=== PATIENT | female | born 1970 | race Caucasian/White ===

== ENCOUNTER 2018-11-24 07:55 | Emergency (ER) | payer OTHER ==
[~2018-11-24] VITALS: Ht 172.7 cm; Wt 104.1 kg
[2018-11-24 07:58] VITALS: BP 119/61
[2018-11-24] MEDS ORDERED: METH4TAB2 PO (08:13)
[2018-11-24] MEDS ORDERED: DIPH25CA58 PO (08:13)
[2018-11-24] MEDS ORDERED: FAMO-63 PO (08:13)
[2018-11-24] MEDS ORDERED: CEPH-264 PO (08:13)
[2018-11-24] MEDS ORDERED: FAMOTIDINE 20 MG TABLET. PO ONE (08:15)
[2018-11-24] MEDS ORDERED: predniSONE 10 MG TABLET PO ONE (08:15)
[2018-11-24] MEDS ORDERED: diphenhydrAMINE HCL 25 MG CAPSULE PO ONE (08:15)
--- NOTE | 2018-11-24 08:20 | PHYS DOC ---
Past Medical History Past Medical History: Other Additional Past Medical Histor: leaky heart valve, PSORIASIS Past Surgical History: No Surgical History Alcohol Use: None Drug Use: Methamphetamine Adult General Chief Complaint Chief Complaint: EYE PROBLEMS HPI HPI Patient is a 48 year old female who presents with used a new Mud Mask on her face last night and began having some itching and slight swelling around her eyes and upper face. Patient states she awoke this morning to facial redness and swelling around her eyes extending to top of cheek bones. Patient denies pain or drainage. There is no drainage or blisters. Review of Systems Review of Systems Constitutional: Denies fever or chills [] Eyes: Denies change in visual acuity, redness, or eye pain [] HENT: Denies nasal congestion or sore throat [] Respiratory: Denies cough or shortness of breath [] Cardiovascular: No additional information not addressed in HPI [] GI: Denies abdominal pain, nausea, vomiting, bloody stools or diarrhea [] : Denies dysuria or hematuria [] Musculoskeletal: Denies back pain or joint pain [] Integument: facial rash or skin lesions [] Neurologic: Denies headache, focal weakness or sensory changes [] All other systems were reviewed and found to be within normal limits, except as documented in this note. Allergies Allergies Allergies Coded Allergies Type Severity Reaction Last Updated Verified No Known Drug Allergies 02/08/15 No Physical Exam Physical Exam Constitutional: Well developed, well nourished, no acute distress, non-toxic appearance. [] HENT: Normocephalic, atraumatic, bilateral external ears normal, oropharynx moist, no oral exudates, nose normal. [] Eyes: PERRLA, EOMI, conjunctiva normal, no discharge. [] Neck: Normal range of motion, no tenderness, supple, no stridor. [] Cardiovascular:Heart rate regular rhythm, no murmur [] Lungs & Thorax: Bilateral breath sounds clear to auscultation [] Abdomen: Bowel sounds normal, soft, no tenderness, no masses, no pulsatile masses. [] Skin: Warm, dry, no erythema, facial rash. [] Back: No tenderness, no CVA tenderness. [] Extremities: No tenderness, no cyanosis, no clubbing, ROM intact, no edema. [] Neurologic: Alert and oriented X 3, normal motor function, normal sensory function, no focal deficits noted. [] Psychologic: Affect normal, judgement normal, mood normal. [] EKG EKG [] Radiology/Procedures Radiology/Procedures [] Course & Med Decision Making Course & Med Decision Making Patient is a 48 year old female who presents with used a new Mud Mask on her face last night and began having some itching and slight swelling around her eyes and upper face. Patient states she awoke this morning to facial redness and swelling around her eyes extending to top of cheek bones. Patient denies pain or drainage. There is no drainage or blisters. Denies visual changes or eye pain. Patient has intact range of motion of her eye and has no pain with movement of her eyes. Denies fever, nausea, soa, or vomiting. Patient also states she had a abscess or a ingrown hair on her chin that his open and draining. It has been there for a week. The wound looks to be scabbed over. Differentials for this patient would be facial cellulitis or allergic reaction. I will treat her with Keflex to help with the wound on her chin and treat for a allergic reaction. Dragon Disclaimer Dragon Disclaimer This electronic medical record was generated, in whole or in part, using a voice recognition dictation system. Departure Departure Impression: Primary Impression: Contact dermatitis Additional Impression: Wound of skin Disposition: 01 HOME, SELF-CARE Condition: STABLE Referrals: ALMA CEVALLOS (PCP) Patient Instructions: Abscess, Contact Dermatitis Additional Instructions: Take medication as prescribed. If worsening return to ED or follow up with eye doctor. Scripts Cephalexin (KEFLEX) 500 Mg Capsule 500 MG PO QID for 7 Days, #28 CAP Prov: TESSA TERRY SUPERVISOR [employer] 11/24/18 Diphenhydramine Hcl (BENADRYL) 25 Mg Capsule 25 MG PO TID for 5 Days, #15 CAP Prov: BAFTESSA OSUNA SUPERVISOR [employer] 11/24/18 Famotidine (PEPCID) 20 Mg Tablet 20 MG PO BID for 5 Days, #10 TAB Prov: TESSA TERRY SUPERVISOR [employer] 11/24/18 Methylprednisolone (MEDROL) 4 Mg Tab.ds.pk 1 PKG PO UD, #1 PKG Prov: TESSA TERRY APRN 11/24/18 Problem Qualifiers Primary Impression: Contact dermatitis Contact dermatitis type: allergic Contact dermatitis trigger: other chemical product Qualified Codes: L23.5 - Allergic contact dermatitis due to other chemical products TESSA TERRY APRN Nov 24, 2018 08:20
== END 2018-11-24 08:20 | disposition home or self-care (01) ==
LOC: ER 07:55
DX: L23.5 Allergic contact dermatitis due to other chemical products (principal); L40.9 Psoriasis, unspecified
CPT/HCPCS: 99284; J7512; Q0163

== ENCOUNTER 2019-08-10 12:06 | Emergency (ER) | payer MEDICAID, OTHER ==
[~2019-08-10] VITALS: Ht 170.2 cm; Wt 103.9 kg
[2019-08-10 12:06] VITALS: BP 132/70
[~2019-08-10 12:06] MED LIST: CEPH-264 PO; DIPH25CA58 PO; FAMO-63 PO; METH4TAB2 PO
[2019-08-10] MEDS ORDERED: DEXAMETHASONE SOD PHOS 20 MG/5 ML VIAL. IM ONE (13:00)
[2019-08-10] MEDS ORDERED: hydrOXYzine IM 50 MG/ML VIAL IM ONE (13:00)
[2019-08-10] MEDS ORDERED: TRIA15OI TP (13:03)
[2019-08-10] MEDS ORDERED: HYDR50TA PO (13:03)
[2019-08-10] MEDS ORDERED: PRED-220 PO (13:03)
--- NOTE | 2019-08-10 13:03 | PHYS DOC ---
Past Medical History Past Medical History: Hypertension, Other Additional Past Medical Histor: leaky heart valve, PSORIASIS Past Surgical History: No Surgical History Alcohol Use: None Drug Use: None Adult General Chief Complaint Chief Complaint: ITCHING HPI HPI Patient is a 49 year old female with history of hypertension who presents to the ED today complaining of a scaly itchy rash for the last 2 months. Patient states she was seen by the PCP 2 months ago and was given a steroid cream which did not help. Patient denies any fever. Review of Systems Review of Systems Constitutional: Denies fever or chills [] Musculoskeletal: Denies back pain or joint pain [] Integument: Reports rash Neurologic: Denies headache, focal weakness or sensory changes [] All other systems were reviewed and found to be within normal limits, except as documented in this note. Allergies Allergies Allergies Coded Allergies Type Severity Reaction Last Updated Verified No Known Drug Allergies 02/08/15 No Physical Exam Physical Exam Constitutional: Well developed, well nourished, no acute distress, non-toxic appearance. [] Skin: Mild amount of scaly erythematous patchy type of rash in patient's bilateral upper extremities, lower extremities and back. Rash suspicious of psoriasis. Back: No tenderness, no CVA tenderness. [] Extremities: No tenderness, no cyanosis, no clubbing, ROM intact, no edema. [] Neurologic: Alert and oriented X 3, normal motor function, normal sensory function, no focal deficits noted. [] Psychologic: Affect normal, judgement normal, mood normal. [] Current Patient Data Vital Signs Vital Signs Date Time Temp Pulse Resp B/P (MAP) Pulse Ox O2 Delivery O2 Flow Rate FiO2 08/10/19 12:06 98.4 98 19 132/70 (90) 98 Room Air 98.4 EKG EKG [] Radiology/Procedures Radiology/Procedures [] Course & Med Decision Making Course & Med Decision Making Pertinent Labs and Imaging studies reviewed. (See chart for details) This is a 49-year-old female patient who presents to the ED today with a rash suspicious of psoriasis. She has been told before she has psoriasis and was asked to consider seeing a traffic signal supervisor maintenance which she did not. She states she is familiar with Dr. Banks the spinner fixer. I requested her to follow-up with Dr. Banks as soon as she can. In the meantime I put her on oral prednisone tapered dose, and hydroxyzine. Dragon Disclaimer Dragon Disclaimer This electronic medical record was generated, in whole or in part, using a voice recognition dictation system. Departure Departure Impression: Primary Impression: Psoriasiform dermatitis Disposition: HOME, SELF-CARE Condition: STABLE Referrals: TRINA KIRK (PCP) CA BANKS MD follow up as soon as you can Patient Instructions: Psoriasis, [id number] Additional Instructions: He were evaluated in the emergency room for a rash that is suspicious of psoriasis. We highly recommend you follow-up with the spinner fixer provided and request a referral to traffic signal supervisor maintenance for follow up as well. Scripts Triamcinolone Acetonide (TRIAMCINOLONE ACETONIDE 0.1% OINT) 15 Gm Oint...g. 1 BARRETT TP TID for WOUND CARE, #1 TUBE Prov: CIARRA PEREZ APRN 08/10/19 Prednisone (PREDNISONE ) 10 Mg Tablet 10 MG PO UD for PREDNISONE TAPER, #39 TAB 0 Refills Take 3 tablets by mouth twice a day for 3 days, then take 2 tablets by mouth twice a day for 3 days, then take 1 tablet by mouth twice a day for 3 days, then take 1 tablet by mouth daily x 3 days, then stop. Prov: CIARRA PEREZ APRN 08/10/19 Hydroxyzine Hcl (HYDROXYZINE HCL) 50 Mg Tablet 50 MG PO TID, #90 TAB Prov: CIARRA PEREZ APRN 08/10/19 CIARRA PEREZ APRN Aug 10, 2019 13:03
== END 2019-08-10 13:13 | disposition home or self-care (01) ==
LOC: ER 12:06
DX: L30.8 Other specified dermatitis (principal); I10 Essential (primary) hypertension
CPT/HCPCS: 96372; 99284; J1100; J3410

== ENCOUNTER 2020-05-24 11:20 | Emergency (ER) | payer MEDICAID ==
[~2020-05-24] VITALS: Ht 172.7 cm; Wt 97.6 kg
[~2020-05-24 11:20] MED LIST changes: +HYDR50TA PO; +PRED-220 PO; +TRIA15OI TP
[2020-05-24] MEDS ORDERED: PRED20TA PO (12:14)
[2020-05-24] MEDS ORDERED: predniSONE 10 MG TABLET PO ONE (12:15)
--- NOTE | 2020-05-24 12:15 | PHYS DOC ---
Past Medical History Past Medical History: Hypertension, Other Additional Past Medical Histor: leaky heart valve, PSORIASIS Past Surgical History: No Surgical History Smoking Status: Current Every Day Smoker Additional Information: 2 ppd Alcohol Use: None Drug Use: None General Adult EDM: Chief Complaint: ALLERGIC REACTION HPI: HPI: Patient is a 50 year old female who presents to the emergency department with complaints of redness, swelling, and itching to her face for the last 3 days. Patient reports that the symptoms began after she used a new charcoal facemask. She denies any drainage, fever, shortness of breath, wheezing, or pain. Patient states she has tried applying cool cloths to the face for comfort that helps temporarily but then the conditions return. She denies any vision changes, headache, or crusting of her eyelids. She reports that her eyes were tearing initially but denies any drainage from her eyes at this time. Review of Systems: Review of Systems: Constitutional: Denies fever or chills. [] Eyes: Denies change in visual acuity. [] HENT: Denies nasal congestion or sore throat. [] Respiratory: Denies cough or shortness of breath. [] Integument: Denies see HPI Neurologic: Denies headache, focal weakness or sensory changes. [] Lymphatic: Denies swollen glands. [] Psychiatric: Denies depression or anxiety. [] Heart Score: Risk Factors: Risk Factors: DM, Current or recent (<one month) smoker, HTN, HLP, family history of CAD, obesity. Risk Scores: Score 0 - 3: 2.5% MACE over next 6 weeks - Discharge Home Score 4 - 6: 20.3% MACE over next 6 weeks - Admit for Clinical Observation Score 7 - 10: 72.7% MACE over next 6 weeks - Early Invasive Strategies Current Medications: Current Medications Medications (Trade) Dose Ordered Sig/Jonny Start Time Stop Time Status Last Admin Dose Admin Prednisone (Prednisone) 50 mg 1X ONCE 05/24/20 12:15 05/24/20 12:16 UNV Allergies: Allergies: Allergies Coded Allergies Type Severity Reaction Last Updated Verified No Known Drug Allergies 05/24/20 No Physical Exam: PE: Constitutional: Well developed, well nourished, no acute distress, non-toxic appearance. [] HENT: Normocephalic, atraumatic, bilateral external ears normal, oropharynx mo ist, no oral exudates, nose normal. [] Eyes: PERRLA, EOMI, conjunctiva normal, no discharge. [] Neck: Normal range of motion, no stridor. [] Cardiovascular:Heart rate regular rhythm, no murmur [] Lungs & Thorax: Respirations even and unlabored, no retractions, no respiratory distress Skin: Warm, dry; erythema with mild edema noted to patient's face, consistent with contact dermatitis, no vesicles, no drainage Extremities: No cyanosis, ROM intact, no edema. [] Neurologic: Alert and oriented X 3, no focal deficits noted. [] Psychologic: Affect normal, judgement normal, mood normal. [] Current Patient Data: Vital Signs: Vital Signs Date Time Temp Pulse Resp B/P (MAP) Pulse Ox O2 Delivery O2 Flow Rate FiO2 05/24/20 11:35 98.8 81 16 103/51 (68) 98 Room Air 98.8 EKG: EKG: [] Radiology/Procedures: Radiology/Procedures: [] Course & Med Decision Making: Course & Med Decision Making Pertinent Labs and Imaging studies reviewed. (See chart for details) [] Dragon Disclaimer: Realitycheck Disclaimer: This electronic medical record was generated, in whole or in part, using a voice recognition dictation system. Departure Departure Impression: Primary Impression: Contact dermatitis Qualified Codes: L23.2 - Allergic contact dermatitis due to cosmetics Disposition: HOME, SELF-CARE Condition: STABLE Referrals: NO PCP (PCP) Patient Instructions: Contact Dermatitis, [id number] Additional Instructions: Fill the prescriptions and use them as directed. I recommend that you apply c ool moist cloth to your face as needed for comfort. Only use facial cleansers and moisturizers that are for sensitive skin. Follow-up with your primary care doctor if symptoms persist, return to the ER if symptoms worsen or fever develops. [facility] [address] [place] [address] [facility] [address] [place] [address] [place] [address] [facility] [address] [address] [facility] [address] [place] [address] [address] [address] [place] [address] [address] [place] [address] [facility] [address] [place] [address] [facility] [address] [place] [address] [facility] [address] [place] [address] Scripts Prednisone (PREDNISONE) 20 Mg Tablet 1 TAB PO UD for 12 Days, #15 TAB 2 tabs by mouth days 1,2,3 then 1.5 tabs by mouth days 4,5,6 then 1 tab by mouth days 7,8,9 then 0.5 tab by mouth day 10,11,12 Prov: DANIELE TAMAYO DIRECTOR CHILD ABUSE THERAPY 05/24/20 Justicifation of Admission Dx: Justifications for Admission: Justification of Admission Dx: N/A DANIELE TAMAYO DIRECTOR CHILD ABUSE THERAPY May 24, 2020 12:14
[2020-05-24 12:23] VITALS: BP 107/60
== END 2020-05-24 12:27 | disposition home or self-care (01) ==
LOC: ER 11:20
DX: T49.8X1A Poisoning by other topical agents, accidental (unintentional), initial encounter (principal); L23.2 Allergic contact dermatitis due to cosmetics; I10 Essential (primary) hypertension; F17.200 Nicotine dependence, unspecified, uncomplicated; Y92.89 Other specified places as the place of occurrence of the external cause
CPT/HCPCS: 99283; J7512

== ENCOUNTER 2021-02-11 23:07 | Emergency (ER) | payer MEDICAID ==
[~2021-02-11] VITALS: Ht 172.7 cm; Wt 100.0 kg
[~2021-02-11 23:07] MED LIST changes: +PRED20TA PO
[2021-02-12 00:27] VITALS: BP 109/55
[2021-02-12] MEDS ORDERED: AMOXICILLIN/K CLAV 875/125MG TABLET. PO ONE (01:15)
[2021-02-12] MEDS ORDERED: DIPH,PERTUSS(ACELL),TET VAC/PF 0.5 ML SYRINGE. VAX IM ONE (01:15)
--- NOTE | 2021-02-12 01:40 | ED.ADGEN ---
Past Medical History Past Medical History: Hypertension Additional Past Medical Histor: leaky heart valve, PSORIASIS Past Surgical History: No Surgical History Smoking Status: Current Every Day Smoker Alcohol Use: None Drug Use: None General Adult EDM: Chief Complaint: ANIMAL BITE HPI: HPI: Patient is a 50 year old female presenting with dog bite to the distal end of her right index finger. Patient states it was her dog bit her. States she has read patient out of date but states that she has not concerned about him having repeated as she wished acting normally but got into a small altercation with her daughter's dog when she was trying to break them up. Last tetanus greater than 5 years ago Review of Systems: Review of Systems: All other systems within normal limits except for as noted in the HPI Current Medications: Current Medications Medications (Trade) Dose Ordered Sig/Jonny Start Time Stop Time Status Last Admin Dose Admin Amoxicillin/ Clavulanate Potassium (Augmentin 875/ 125mg) 1 tab 1X ONCE 02/12/21 01:15 02/12/21 01:16 DC 02/12/21 01:52 1 TAB Diphtheria/ Tetanus/Acell Pertussis (ADACEL TDap SYRINGE) 0.5 ml ONCE ONCE 02/12/21 01:15 02/12/21 01:16 DC 02/12/21 01:53 0.5 ML Allergies: Allergies: Allergies Coded Allergies Type Severity Reaction Last Updated Verified No Known Drug Allergies 05/24/20 No Physical Exam: PE: Constitutional: Well developed, well nourished, no acute distress, non-toxic appearance. [] HENT: Normocephalic, atraumatic, bilateral external ears normal, nose normal. [] Eyes: PERRLA, conjunctiva normal, no discharge. [] Neck: No rigidity, supple, no stridor. [] Cardiovascular: Regular rate and rhythm, brisk cap refill [] Lungs & Thorax: Non labored symmetric respirations, no tachypnea or respiratory distress [] Abdomen: Soft, nondistended. Skin: Warm, dry, no erythema, no rash. +1 cm laceration to fat pad of right distal index finger. Small laceration on other side next to fingernail [] Back: Unremarkable Extremities: No deformities, range of motion grossly intact, no lower extremity edema [] Neurologic: Alert and oriented X 3, no focal deficits noted. [] Psychologic: Affect normal, judgement normal, mood normal. [] Current Patient Data: Vital Signs: Vital Signs Date Time Temp Pulse Resp B/P (MAP) Pulse Ox O2 Delivery O2 Flow Rate FiO2 02/12/21 00:27 98.1 67 20 97 Room Air 98.1 EKG: EKG: [] Heart Score: C/O Chest Pain: No Risk Factors: Risk Factors: DM, Current or recent (<one month) smoker, HTN, HLP, family history of CAD, obesity. Risk Scores: Score 0 - 3: 2.5% MACE over next 6 weeks - Discharge Home Score 4 - 6: 20.3% MACE over next 6 weeks - Admit for Clinical Observation Score 7 - 10: 72.7% MACE over next 6 weeks - Early Invasive Strategies Radiology/Procedures: Radiology/Procedures: EXAM: Right second finger 3 views. HISTORY: Pain after injury.. COMPARISON: None. FINDINGS: There is a laceration along the distal aspect of the second digit. There is no fracture or radiopaque foreign body. 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 Rings project over the first and fourth proximal phalanges. IMPRESSION: 1. Second digit laceration. No fracture or radiopaque foreign body. [] Course & Med Decision Making: Course & Med Decision Making Patient refusing rabies vaccine, states she has her dog will quarantine at. Discussed symptoms to watch out for and to immediately take the dog animal control of the grade and center marker. Treated with Augmentin. Tetanus updated Thanh Disclaimer: Thanh Disclaimer: This electronic medical record was generated, in whole or in part, using a voice recognition dictation system. Departure Departure Impression: Primary Impression: Dog bite of index finger Disposition: HOME / SELF CARE / HOMELESS Condition: STABLE Referrals: NO PCP (PCP) Patient Instructions: Wound Care, [id number] Additional Instructions: Monitoring quarantine your dog and observe for any abnormal behaviors. If noted call animal control immediately. Scripts Amoxicillin/Potassium Clav (AUGMENTIN 875-125 TABLET) 1 Each Tablet 1 TAB PO BID for antibiotic for 7 Days, #14 TAB 0 Refills Prov: SHELDON HAYWOOD MD 02/12/21 SHELDON HAYWOOD MD February 12, 2021 01:40
--- NOTE | 2021-02-12 01:44 | RAD ---
EXAM: Right second finger 3 views. HISTORY: Pain after injury.. COMPARISON: None. FINDINGS: There is a laceration along the distal aspect of the second digit. There is no fracture or radiopaque foreign body. 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 Rings project over the first an d fourth proximal phalanges. IMPRESSION: 1. Second digit laceration. No fracture or radiopaque foreign body. Electronically signed by: Paul Joseph MD (02/12/2021 1:41 AM) [facility]
[2021-02-12] MEDS ORDERED: AMOX1TAB61 PO (02:14)
== END 2021-02-12 02:30 | disposition home or self-care (01) ==
LOC: ER 23:07
DX: S61.210A Laceration without foreign body of right index finger without damage to nail, initial encounter (principal); I10 Essential (primary) hypertension; F17.200 Nicotine dependence, unspecified, uncomplicated; W54.0XXA Bitten by dog, initial encounter; Y93.89 Activity, other specified; Y92.89 Other specified places as the place of occurrence of the external cause; Y99.8 Other external cause status
CPT/HCPCS: 73140; 90471; 90715; 99283

== ENCOUNTER 2021-08-03 22:42 | Emergency (ER) | payer MEDICAID ==
[~2021-08-03] VITALS: Ht 170.2 cm; Wt 96.8 kg
[~2021-08-03 22:42] MED LIST changes: +AMOX1TAB61 PO
--- NOTE | 2021-08-03 23:39 | RAD ---
US DPLX VENOUS EXTREMITY LOWER LT 08/03/2021 11:07 PM Clinical Information: Reason: LLE swelling pain Comparison: None. Technique: Multiple grayscale, color Doppler, and spectral Doppler sonographic images of the lower ex tremity venous structures were obtained. Findings: The left common femoral, femoral, and popliteal veins exhibit normal compression, respiratory phasici ty, and augmentation. No intraluminal thrombi are identified. Color Doppler flow is demonstrated in t he left posterior tibial veins. Greater saphenous veins are patent at the saphenofemoral junction. Impression: 1. No evidence of deep venous thrombosis. Electronically signed by: Alana Holder MD (08/03/2021 11:37 PM) [facility]
[2021-08-03 23:50] VITALS: BP 93/60
--- NOTE | 2021-08-03 23:57 | PHYS DOC ---
Past Medical History Past Medical History: Hypertension Additional Past Medical Histor: leaky heart valve, PSORIASIS Past Surgical History: No Surgical History Smoking Status: Current Every Day Smoker Alcohol Use: None Drug Use: None General Adult EDM: Chief Complaint: LOWER EXT PAIN HPI: HPI: Patient is a 51 year old female with a history of hypertension who presents to the ED today complaining of left lower extremity swelling, redness, warmth, symptoms began a week ago. Patient denies any injuries. Denies any recent hospitalization or long car or air travel. Denies any fever. She states she is concerned she could have a DVT or infection. Review of Systems: Review of Systems: Constitutional: Denies fever or chills. [] Eyes: Denies change in visual acuity. [] HENT: Denies nasal congestion or sore throat. [] Respiratory: Denies cough or shortness of breath. [] Cardiovascular: Denies chest pain or edema. [] GI: Denies abdominal pain, nausea, vomiting, bloody stools or diarrhea. [] : Denies dysuria. [] Musculoskeletal: left lower extremity swelling, redness, warmth Denies back pain Integument: Denies rash. [] Neurologic: Denies headache, focal weakness or sensory changes. [] Psychiatric: Denies depression or anxiety. [] Heart Score: C/O Chest Pain: N/A Risk Factors: Risk Factors: DM, Current or recent (<one month) smoker, HTN, HLP, family history of CAD, obesity. Risk Scores: Score 0 - 3: 2.5% MACE over next 6 weeks - Discharge Home Score 4 - 6: 20.3% MACE over next 6 weeks - Admit for Clinical Observation Score 7 - 10: 72.7% MACE over next 6 weeks - Early Invasive Strategies Allergies: Allergies: Allergies Coded Allergies Type Severity Reaction Last Updated Verified No Known Drug Allergies 05/24/20 No Physical Exam: PE: Constitutional: Well developed, well nourished, no acute distress, non-toxic appearance. [] HENT: Normocephalic, atraumatic, bilateral external ears normal, oropharynx moist, no oral exudates, nose normal. [] Eyes: PERRLA, EOMI, conjunctiva normal, no discharge. [] Neck: Normal range of motion, no tenderness, supple, no stridor. [] Cardiovascular:Heart rate regular rhythm, no murmur [] Lungs & Thorax: Bilateral breath sounds clear to auscultation [] Abdomen: Bowel sounds normal, soft, no tenderness, no masses, no pulsatile masses. [] Skin: Warm, dry, no erythema, no rash. [] Back: No tenderness, no CVA tenderness. [] Extremities: Left lower extremity with no obvious edema, no obvious ecchymosis, there is a tiny area of psoriasis noted on the left medial lower extremity with no infection, no warmth. Negative Homans' sign to the left lower extremity. Range of motion intact to the left lower extremity. +2 left pedal pulse. Varicose veins noted on the right lower extremity. Neurologic: Alert and oriented X 3, normal motor function, normal sensory function, no focal deficits noted. [] Psychologic: Affect normal, judgement normal, mood normal. [] EKG: EKG: [] Radiology/Procedures: Radiology/Procedures: []PROCEDURE: VENOUS LOWER EXTREMITY LEFT US DPLX VENOUS EXTREMITY LOWER LT 08/03/2021 11:07 PM Clinical Information: Reason: LLE swelling pain Comparison: None. Technique: Multiple grayscale, color Doppler, and spectral Doppler sonographic images of the lower extremity venous structures were obtained. Findings: The left common femoral, femoral, and popliteal veins exhibit normal compression, respiratory phasicity, and augmentation. No intraluminal thrombi are identified. Color Doppler flow is demonstrated in the left posterior tibial veins. Greater saphenous veins are patent at the saphenofemoral junction. Impression: 1. No evidence of deep venous thrombosis. Electronically signed by: Reagan Holder MD (08/03/2021 11:37 PM) [facility] DICTATED and SIGNED BY: REAGAN HOLDER MD DATE: 08/03/21 [id number] 0 Course & Med Decision Making: Course & Med Decision Making Pertinent Labs and Imaging studies reviewed. (See chart for details) This is a 51-year-old female patient presenting to the ED today with left lower extremity swelling, redness, warmth, symptoms for a week. Left lower extremity was examined by me. There is no redness, no warmth, there is an area of psoriasis on the left medial cherry that is not infected. Dragon Disclaimer: Dragon Disclaimer: This electronic medical record was generated, in whole or in part, using a voice recognition dictation system. Departure Departure Impression: Primary Impression: Edema of left lower extremity Disposition: 01 HOME / SELF CARE / HOMELESS Condition: STABLE Referrals: UNKNOWN PCP NAME (PCP) follow up with your doctor in one week Patient Instructions: Edema, [id number] CIARRA PEREZ FELTER TENNIS BALLS Aug 03, 2021 23:56
== END 2021-08-04 00:12 | disposition home or self-care (01) ==
LOC: ER 22:42
DX: R60.0 Localized edema (principal); I10 Essential (primary) hypertension; F17.200 Nicotine dependence, unspecified, uncomplicated
CPT/HCPCS: 93971; 99284